=== PATIENT | female | born 1970 ===

== ENCOUNTER 2018-12-05 09:31 | Emergency (ER) | payer SELFPAY ==
[2018-12-05 09:57] VITALS: TEMP 98.6; O2SAT 98
--- NOTE | 2018-12-05 10:19 | ED PDOC ---
History of Present Illness History of Present Illness: 48 y/o f with PMH of brain tumor s/p resection comes to the ED c/o 2 days hx of cough, congestion, body aches, sore throat and subjective fever which started 2 days ago. + Sick contact at home with flu. patient reports she was coughing so hard this morning which made her vomit 3 times. reports poor appetite, denies any diarrhea, urinary symptoms, dizziness, blurred vision, chest pain or SOB. PMH: Brain tumore s/p resection 4 years ago PSH: Brain tumore s/p resection 4 years ago Meds: Denies Allg: Penicillin and Levoquine FH: Denies any significant FH SH: + Smoking, half pack per day, Denies alcohol,or drug use ROS: As per HPI <Trevon Madden - Last Filed: 12/05/18 12:13> HPI: Influenza <Yinka Monge III - Last Filed: 12/05/18 12:08> <Trevon Madden - Last Filed: 12/05/18 12:13> Time Seen by Provider: 12/05/18 09:57 Chief Complaint: Flu-like Symptoms Past Medical History Vital Signs: Last Vital Signs Temp 98.6 F 12/05/18 09:56 Pulse 84 12/05/18 09:56 Resp 16 12/05/18 09:56 BP 138/89 12/05/18 09:56 Pulse Ox 98 12/05/18 11:07 <Yinka Monge III - Last Filed: 12/05/18 12:08> Vital Signs: Last Vital Signs Temp 98.6 F 12/05/18 09:56 Pulse 84 12/05/18 09:56 Resp 16 12/05/18 09:56 BP 138/89 12/05/18 09:56 Pulse Ox 98 12/05/18 09:56 - Medical History PMH: No Chronic Diseases - Surgical History Other surgeries: Brain tumore resection - Family History Family History: States: No Known Family Hx - Social History Current smoker - smoking cessation education provided: Yes <Trevon Madden - Last Filed: 12/05/18 12:13> - Home Medications Home Medications: Ambulatory Orders Medication Instructions Recorded Ibuprofen [Motrin Tab] 600 mg PO Q6 PRN #15 tab 12/05/18 Oseltamivir Cap [Tamiflu] 75 mg PO BID #10 cap 12/05/18 guaiFENesin [guaifENESIN] 100 mg PO Q4 PRN #200 ml 12/05/18 - Allergies Allergies/Adverse Reactions: Allergies Allergy/AdvReac Type Severity Reaction Status Date / Time levofloxacin [From Levaquin] Allergy RASH Verified 12/05/18 09:53 Penicillins Allergy RASH Verified 12/05/18 09:53 Review of Systems Constitutional: Positive for: Fever, Chills. Negative for: Sweats Eyes: Negative for: Pain ENT: Positive for: Nose Discharge, Nose Congestion, Throat Pain. Negative for: Ear Pain Cardiovascular: Negative for: Chest Pain, Palpitations Respiratory: Positive for: Cough. Negative for: Shortness of Breath, Hemoptysis Gastrointestinal: Positive for: Vomiting. Negative for: Nausea, Abdominal Pain Genitourinary Female: Negative for: Dysuria Musculoskeletal: Negative for: Neck Pain Skin: Negative for: Rash Neurological: Negative for: Weakness Psych: Negative for: Anxiety <Trevon Madden - Last Filed: 12/05/18 12:13> Physical Exam - Physical Exam Appears: Positive for: Uncomfortable Head Exam: Positive for: NORMAL INSPECTION Skin: Positive for: Normal Color Eye Exam: Positive for: Normal appearance, EOMI, PERRL ENT: Positive for: Sinus Pain/Drainage, Nasal Congestion, Pharyngeal Erythema, Tonsillar Swelling. Negative for: Tonsillar Exudate Neck: Positive for: Normal, Painless ROM, Supple. Negative for: Pain On Movement Of Neck Cardiovascular/Chest: Positive for: Regular Rate, Rhythm. Negative for: Edema, JVD, Murmur Respiratory: Positive for: Normal Breath Sounds. Negative for: Decreased Breath Sounds, Accessory Muscle Use, Wheezing Gastrointestinal/Abdominal: Positive for: Normal Exam, Bowel Sounds, Soft. Negative for: Tenderness, Distended Back: Positive for: Normal Inspection. Negative for: L CVA Tenderness, R CVA Tenderness Extremity: Positive for: Normal ROM. Negative for: Tenderness Neurologic/Psych: Positive for: Alert, services account manager II-XII, Oriented <Trevon Madden - Last Filed: 12/05/18 12:13> Medical Decision Making Medical Decision Making: Flu like symptoms <Trevon Madden - Last Filed: 12/05/18 12:13> - ECG O2 Sat by Pulse Oximetry: 98 - Progress ED Course And Treament: A/P: 48 y/o F with flu like symptoms for 2 days - Toradol - CXR - Tamiflu - reexamination Case discussed with Dr. Monge CXR: negative for any acute changes Follow up with Dr. Madden on 12/14/18 at 11:20 Re-evaluation Time: 12:13 Condition: Improving,but remains with symptoms <Trevon Madden - Last Filed: 12/05/18 12:13> Disposition <Yinka Monge III - Last Filed: 12/05/18 12:08> - Disposition Disposition Time: 12:10 <Trevon Madden - Last Filed: 12/05/18 12:13> - Clinical Impression Clinical Impression: Influenza-like symptoms - Disposition Referrals: [facility] [Outside] Condition: STABLE Additional Instructions: Drink plenty of fluids, avoid close contact with others. Prescriptions: guaiFENesin [guaifENESIN] 100 mg PO Q4 PRN #200 ml PRN Reason: Cough Ibuprofen [Motrin Tab] 600 mg PO Q6 PRN #15 tab PRN Reason: Pain, Moderate (4-7) Oseltamivir Cap [Tamiflu] 75 mg PO BID #10 cap Instructions: Flu, Adult (DC) Forms: [employer] (Maldivian), [facility] ED School/Work Excuse Attending/Attestation - Attestation I have personally seen and examined this patient.: Yes I have fully participated in the care of the patient.: Yes I have reviewed all pertinent clinical information: Yes Notes (Text): 12/05/18 12:08 pt seen and examined w resident. CXR report reviewed. Vitals reviewed. No distress in ED. Given symptoms and history treat empiric for flu. Rx robitussin and motrin for symptoms. <Yinka Monge III - Last Filed: 12/05/18 12:08>
--- NOTE | 2018-12-05 11:52 | RAD ---
Date of service: 12/05/2018 HISTORY: cough COMPARISON: No prior. TECHNIQUE: Chest PA and lateral FINDINGS: LUNGS: No active pulmonary disease. PLEURA: No significant pleural effusion identified. No pneumothorax apparent. CARDIOVASCULAR: No aortic atherosclerotic calcification present. Normal cardiac size. No pulmonary vascular congestion. OSSEOUS STRUCTURES: No significant abnormalities. VISUALIZED UPPER ABDOMEN: Normal. OTHER FINDINGS: None. IMPRESSION: No active disease.
[2018-12-05 12:30] VITALS: BP 115/74; PULSE 70; RESP 18
== END 2018-12-05 12:30 | disposition home or self-care (01) ==
LOC: MERGE 09:31 → H.ER 09:31
DX: J11.1 Influenza due to unidentified influenza virus with other respiratory manifestations (principal); F17.210 Nicotine dependence, cigarettes, uncomplicated; Z98.890 Other specified postprocedural states; Z88.1 Allergy status to other antibiotic agents; Z88.0 Allergy status to penicillin
CPT/HCPCS: 71046; 81025; 96372; 99283; J1885

== ENCOUNTER 2019-03-04 14:03 | Emergency (ER) | payer SELFPAY ==
[2019-03-04 14:03] VITALS: BMI 31.8
[2019-03-04] MEDS ORDERED: Iohexol 240 (50 ml) PO ONE (14:52)
[2019-03-04 15:03] LABS: BASO % 0.7 % (0.0-2.0); EOS # 0.2 K/uL (0.0-0.7); EOS % 5.1 % (0.0-4.0); HEMOGLOBIN 13.9 g/dL (12.0-16.0); LYMPH # 1.5 K/uL (1.0-4.3); LYMPH % 37.1 % (20.0-40.0); MEAN CELL VOLUME 87.2 fl (81.0-99.0); MEAN CORPUSCULAR HEMOGLOBIN 29.4 pg (27.0-31.0); MEAN CORPUSCULAR HGB CONC 33.7 g/dL (33.0-37.0); MEAN PLATELET VOLUME 9.8 fl (7.2-11.7); MONO # 0.3 K/uL (0.0-0.8); MONO % 7.9 % (0.0-10.0); NEUT % 49.2 % (50.0-75.0); NRBC % 0.3 % (0.0-0.0); RBC 4.75 Mil/uL (3.80-5.20); RED CELL DISTRIBUTION WIDTH 14.2 % (11.5-14.5)
[2019-03-04 15:11] LABS: SQUAMOUS EPITHIAL 1 /hpf (0-5); URINE BACTERIA RARE (<OCC); URINE BILIRUBIN NEGATIVE (NEGATIVE); URINE BLOOD NEGATIVE (NEGATIVE); URINE GLUCOSE (UA) NEG (NEGATIVE); URINE LEUKOCYTE ESTERASE MOD Leu/uL (Negative); URINE PROTEIN NEGATIVE (NEGATIVE); URINE UROBILINOGEN 0.2-1.0 mg/dL (0.2-1.0)
[2019-03-04 15:18] LABS: ALB/GLOB RATIO 1.3 (1.0-2.1); ALBUMIN 4.6 g/dL (3.5-5.0); ALT/SGPT 58 U/L (9-52); AST/SGOT 41 U/L (14-36); BLOOD UREA NITROGEN 12 mg/dl (7-17); CALCIUM 9.9 mg/dL (8.4-10.2); GFR NON-AFRICAN AMERICAN > 60; LIPASE 140 U/L (23-300)
[2019-03-04 15:22] LABS: URINE CLARITY SLIGHT-CLOUDY (Clear)
[2019-03-04 15:24] LABS: URINE COLOR LIGHT YELLOW (YELLOW)
[2019-03-04] MEDS ORDERED: Iohexol 300 100 ML IJ ONE (16:51)
[2019-03-04] MEDS ORDERED: Sodium Chloride 0.9% 50 ML IV ONE (16:51)
--- NOTE | 2019-03-04 19:28 | ED PDOC ---
HPI: Abdomen Time Seen by Provider: 03/04/19 14:09 Chief Complaint (Nursing): Abdominal Pain Chief Complaint (Provider): Abdominal Pain History Per: Patient History/Exam Limitations: no limitations Onset/Duration Of Symptoms: Days Current Symptoms Are (Timing): Still Present Additional Complaint(s): 48 y/o female with a PMHx of a brain tumor resection presents to the ED complaining of abdominal pain and diarrhea, ongoing for the past 4-5 days. Of note, patient's boyfriend and another family member have had C-Diff in the last six months. Patient additionally has a history of diverticulitis that required hospitalization. Otherwise, patient denies fever, hematochezia, being on any blood thinners, alcohol use, drug use and vomiting. PMD: no provider Past Medical History Reviewed: Historical Data, Nursing Documentation, Vital Signs Vital Signs: Last Vital Signs Temp 98.8 F 03/04/19 14:05 Pulse 62 03/04/19 14:05 Resp 16 03/04/19 14:05 BP 152/92 H 03/04/19 14:05 Pulse Ox 99 03/04/19 14:05 - Medical History PMH: Diverticulitis, Gastritis Denies: HIV, Chronic Kidney Disease - Surgical History Other surgeries: brain tumor resection - Family History Family History: States: Hypertension - Social History Current smoker - smoking cessation education provided: Yes Alcohol: None Drugs: Denies - Home Medications Home Medications: Ambulatory Orders Medication Instructions Recorded Ibuprofen [Motrin Tab] 600 mg PO Q6 PRN #15 tab 12/05/18 Oseltamivir Cap [Tamiflu] 75 mg PO BID #10 cap 12/05/18 guaiFENesin [guaifENESIN] 100 mg PO Q4 PRN #200 ml 12/05/18 Atropine/Diphenoxylate [Lonox 1 tab PO QID PRN #30 tab 03/04/19 0.025 MG-2.5 MG] Saccharomyces Boulardi [Florastor] 500 mg PO BID #28 cap 03/04/19 Sulfamethoxazole/Trimethoprim 1 tab PO BID #20 tab 03/04/19 [Bactrim DS 800 mg-160 mg] metroNIDAZOLE [Flagyl] 500 mg PO TID #30 tab 03/04/19 - Allergies Allergies/Adverse Reactions: Allergies Allergy/AdvReac Type Severity Reaction Status Date / Time levofloxacin [From Levaquin] Allergy RASH Verified 12/07/18 08:33 Penicillins Allergy RASH Verified 12/07/18 08:33 Review of Systems ROS Statement: Except As Marked, All Systems Reviewed And Found Negative Constitutional: Positive for: Weakness. Negative for: Fever Gastrointestinal: Positive for: Abdominal Pain, Diarrhea. Negative for: Vomiting, Hematochezia, Hematemesis Physical Exam - Reviewed Nursing Documentation Reviewed: Yes Vital Signs Reviewed: Yes - Physical Exam Appears: Positive for: Uncomfortable Head Exam: Positive for: ATRAUMATIC, NORMOCEPHALIC Skin: Positive for: Normal Color, Warm, Dry Eye Exam: Positive for: Normal appearance, EOMI, PERRL Neck: Positive for: Normal, Painless ROM, Supple Cardiovascular/Chest: Positive for: Regular Rate, Rhythm. Negative for: Murmur Respiratory: Positive for: Normal Breath Sounds. Negative for: Respiratory Distress Gastrointestinal/Abdominal: Positive for: Tenderness (mild bilateral lower abdominal tenderness) Back: Positive for: Normal Inspection. Negative for: L CVA Tenderness, R CVA Tenderness Extremity: Positive for: Normal ROM. Negative for: Deformity Neurological/Psych: Positive for: Awake, Alert, Oriented (x3). Negative for: Motor/Sensory Deficits - Laboratory Results Result Diagrams: 03/04/19 14:45 03/04/19 14:45 Lab Results: Total Bilirubin 0.3 mg/dl (0.2-1.3) 03/04/19 14:45 AST 41 U/L (14-36) H D 03/04/19 14:45 ALT 58 U/L (9-52) H 03/04/19 14:45 Alkaline Phosphatase 94 U/L (38-126) 03/04/19 14:45 Total Protein 8.1 G/DL (6.3-8.2) 03/04/19 14:45 Albumin 4.6 g/dL (3.5-5.0) 03/04/19 14:45 Globulin 3.6 gm/dL (2.2-3.9) 03/04/19 14:45 Albumin/Globulin Ratio 1.3 (1.0-2.1) 03/04/19 14:45 Lipase 140 U/L (23-300) 03/04/19 14:45 Urine Color Light yellow (YELLOW) 03/04/19 14:46 Urine Clarity Slight-cloudy (Clear) 03/04/19 14:46 Urine pH 7.0 (5.0-8.0) 03/04/19 14:46 Ur Specific [place] 1.009 (1.003-1.030) 03/04/19 14:46 Urine Protein Negative mg/dL (NEGATIVE) 03/04/19 14:46 Urine Glucose (UA) Neg mg/dL (NEGATIVE) 03/04/19 14:46 Urine Ketones Negative mg/dL (NEGATIVE) 03/04/19 14:46 Urine Blood Negative (NEGATIVE) 03/04/19 14:46 Urine Nitrate Negative (NEGATIVE) 03/04/19 14:46 Urine Bilirubin Negative (NEGATIVE) 03/04/19 14:46 Urine Urobilinogen 0.2-1.0 mg/dL (0.2-1.0) 03/04/19 14:46 Ur Leukocyte Esterase Mod Elaina/uL (Negative) 03/04/19 14:46 Urine RBC (Auto) 1 /hpf (0-3) 03/04/19 14:46 Urine Microscopic WBC 16 /hpf (0-5) H 03/04/19 14:46 Ur Squamous Epith Cells 1 /hpf (0-5) 03/04/19 14:46 Urine Bacteria Rare (<OCC) 03/04/19 14:46 - ECG O2 Sat by Pulse Oximetry: 99 (RA) Pulse Ox Interpretation: Normal Medical Decision Making Medical Decision Making: Time:1453 A/P: -- Rule out diverticulitis vs. C-Diff colitis vs other -- Blood work, Stool sample and CT Abd/Pelvis ordered -- CT Abd/Pelvis PO & IV Contrast -- CMP -- Lipase -- Magnesium -- CBC with Differentials -- Morphine 2 mg IV -- Iohexol 50 ml PO -- Toradol 15 mg IVP -- OVA and Parasite -- Stool Culture -- C Diff Toxin A B -- Urinalysis Time: 1899 -- Patient endorsed to Dr. Whiteside, pending CT Abd/Pelvis. Scribe Attestation: Documented by Lynn Montoya, acting as a scribe Wes Monge III, DO. Provider Scribe Attestation: All medical record entries made by the Scribe were at my direction and personally dictated by me. I have reviewed the chart and agree that the record accurately reflects my personal performance of the history, physical exam, medi jackie decision making, and the department course for this patient. I have also personally directed, reviewed, and agree with the discharge instructions and disposition. Disposition - Clinical Impression Clinical Impression: Diverticulitis - Disposition Referrals: [facility] [place] [Outside] ([facility]) Disposition: Transfer of Care Disposition Time: 19:50 Condition: IMPROVED Prescriptions: Atropine/Diphenoxylate [Lonox 0.025 MG-2.5 MG] 1 tab PO QID PRN #30 tab PRN Reason: Diarrhea metroNIDAZOLE [Flagyl] 500 mg PO TID #30 tab Saccharomyces Boulardi [Florastor] 500 mg PO BID #28 cap Sulfamethoxazole/Trimethoprim [Bactrim DS 800 mg-160 mg] 1 tab PO BID #20 tab Instructions: Diverticulitis (DC) Forms: [facility] ED School/Work Excuse
--- NOTE | 2019-03-04 21:31 | ED PDOC ---
- Laboratory Results Result Diagrams: 03/04/19 14:45 03/04/19 14:45 Lab Results: Total Bilirubin 0.3 mg/dl (0.2-1.3) 03/04/19 14:45 AST 41 U/L (14-36) H D 03/04/19 14:45 ALT 58 U/L (9-52) H 03/04/19 14:45 Alkaline Phosphatase 94 U/L (38-126) 03/04/19 14:45 Total Protein 8.1 G/DL (6.3-8.2) 03/04/19 14:45 Albumin 4.6 g/dL (3.5-5.0) 03/04/19 14:45 Globulin 3.6 gm/dL (2.2-3.9) 03/04/19 14:45 Albumin/Globulin Ratio 1.3 (1.0-2.1) 03/04/19 14:45 Lipase 140 U/L (23-300) 03/04/19 14:45 Urine Color Light yellow (YELLOW) 03/04/19 14:46 Urine Clarity Slight-cloudy (Clear) 03/04/19 14:46 Urine pH 7.0 (5.0-8.0) 03/04/19 14:46 Ur Specific [place] 1.009 (1.003-1.030) 03/04/19 14:46 Urine Protein Negative mg/dL (NEGATIVE) 03/04/19 14:46 Urine Glucose (UA) Neg mg/dL (NEGATIVE) 03/04/19 14:46 Urine Ketones Negative mg/dL (NEGATIVE) 03/04/19 14:46 Urine Blood Negative (NEGATIVE) 03/04/19 14:46 Urine Nitrate Negative (NEGATIVE) 03/04/19 14:46 Urine Bilirubin Negative (NEGATIVE) 03/04/19 14:46 Urine Urobilinogen 0.2-1.0 mg/dL (0.2-1.0) 03/04/19 14:46 Ur Leukocyte Esterase Mod Elaina/uL (Negative) 03/04/19 14:46 Urine RBC (Auto) 1 /hpf (0-3) 03/04/19 14:46 Urine Microscopic WBC 16 /hpf (0-5) H 03/04/19 14:46 Ur Squamous Epith Cells 1 /hpf (0-5) 03/04/19 14:46 Urine Bacteria Rare (<OCC) 03/04/19 14:46 - ECG O2 Sat by Pulse Oximetry: 99 (RA) Pulse Ox Interpretation: Normal Medical Decision Making Medical Decision Making: Time: 1999 -- Patient endorsed to me by Dr. Monge, pending CT Abd/Pelvis EXAM: CT Abdomen and Pelvis with IV contrast CLINICAL HISTORY: Lower abdominal pain history of diverticulittis TECHNIQUE: Axial computed tomography images of the abdomen and pelvis with intravenous contrast. 785.90 mGy-cm CONTRAST: With; [id number] 95ML COMPARISON: 09/16/2016 FINDINGS: LUNG BASES: The lung bases appear clear. No pleural effusions are seen. LIVER: Fatty infiltration of the liver. GALLBLADDER AND BILE DUCTS: The gallbladder appears within normal limits. No radioopaque gallstones are seen. No biliary ductal dilatation is evident. PANCREAS: Unremarkable. SPLEEN: Unremarkable. ADRENAL GLANDS: Unremarkable. KIDNEYS, URETERS, AND BLADDER: The kidneys appear within normal limits. There is no hydronephrosis or hydroureter. No urinary calculi are seen. STOMACH AND BOWEL: Unremarkable appearance of the stomach and bowel. No evidence of bowel obstruction. No evidence suggesting enteritis or colitis. Diverticular changes present with wall thickening at the descending and sigmoid colon. There is no pericolonic mass or free fluid identified. APPENDIX: No evidence of acute appendicitis on CT examination. PERITONEUM: No free fluid. No free air. LYMPH NODES: No lymphadenopathy is evident. REPRODUCTIVE: There is an enlarged fibroid uterus with an approximate 9.1 x 6.7 cm pedun culated fibroid arising from the left side of the uterus. VASCULATURE: No evidence of abdominal aortic aneurysm. BONES: Advanced hypertrophic and degenerative changes lumbar spine. IMPRESSION: Fatty infiltration of the liver. Enlarged fibroid uterus with large pedunculated fibroid arising from the left side of the uterus. Thickening of the wall of the sigmoid and descending colon with diverticular changes. No diverticular abscess or mass. Similar appearance as compared to the old study. Electronically signed on Mar 04, 2019 7:18:51 PM EDT by: Francis Babin M.D., Certified by [facility], Diagnostic Radiology Time: 2132 -- On re-evaluation, patient reports an improvement of symptoms. Discussed with patient findings and plan of care. Patient in agreement. Patient to be discharged home with a diagnosis of diverticulitis and instructions to follow up with PMD and take antibiotic medications as prescribed. Scribe Attestation: Documented by Lynn Montoya, acting as a scribe for Noemi Whiteside MD. Provider Scribe Attestation: All medical record entries made by the Scribe were at my direction and personally dictated by me. I have reviewed the chart and agree that the record accurately reflects my personal performance of the history, physical exam, medical decision making, and the department course for this patient. I have also personally directed, reviewed, and agree with the discharge instructions and disposition. Disposition Counseled Patient/Family Regarding: Studies Performed, Diagnosis, Need For Followup, Rx Given - Clinical Impression Clinical Impression: Diverticulitis - POA Present On Arrival: None - Disposition Referrals: [facility] [place] [Outside] ([facility]) Disposition: Routine/Home Disposition Time: 21:33 Condition: STABLE Prescriptions: Atropine/Diphenoxylate [Lonox 0.025 MG-2.5 MG] 1 tab PO QID PRN #30 tab PRN Reason: Diarrhea metroNIDAZOLE [Flagyl] 500 mg PO TID #30 tab Saccharomyces Boulardi [Florastor] 500 mg PO BID #28 cap Sulfamethoxazole/Trimethoprim [Bactrim DS 800 mg-160 mg] 1 tab PO BID #20 tab Instructions: Diverticulitis (DC) Forms: [facility] ED School/Work Excuse
[2019-03-04 21:58] VITALS: BP 135/85; PULSE 74; RESP 16; TEMP 98.6
--- NOTE | 2019-03-05 08:55 | CT ---
Date of service: 03/04/2019 PROCEDURE: CT Abdomen and Pelvis with contrast HISTORY: lower abd pain hx diverticulitis COMPARISON: 02/05/2018 TECHNIQUE: Contrast dose: 95 mL Omnipaque 300 Radiation dose: Total exam DLP = 785.9 mGy-cm. This CT exam was performed using one or more of the following dose reduction techniques: Automated exposure control, adjustment of the mA and/or kV according to patient size, and/or use of iterative reconstruction technique. FINDINGS: LOWER THORAX: Unremarkable. LIVER: Mild hepatomegaly. Diffusely diminished attenuation of the liver consistent with fatty infiltration. There is a roughly 1.0 x 2.9 cm area of relatively increased attenuation in the medial segment of the left hepatic lobe, adjacent to the gallbladder fossa, consistent with focal fatty sparing. There is a 2nd small area seen along the anterior inferior right hepatic lobe medial to the gallbladder fossa, again consistent with focal fatty sparing. Again, this is unchanged. No mass. No biliary dilatation. GALLBLADDER AND BILE DUCTS: Unremarkable. PANCREAS: Unremarkable. No gross lesion or ductal dilatation. SPLEEN: Unremarkable. ADRENALS: Unremarkable. No mass. KIDNEYS AND URETERS: Cortical cyst, 1.8 cm, mid right kidney, unchanged. No calculus or hydronephrosis. VASCULATURE: Unremarkable. No aortic aneurysm. No aortic atherosclerotic calcification or mural plaque present. BOWEL: Sigmoid diverticulosis. No evidence of diverticulitis. Mild mural thickening of the sigmoid colon most likely secondary to chronic muscularis hypertrophy. This process also involves the distal aspect of the descending colon. No bowel obstruction. No other abnormal bowel loops are identified. APPENDIX: Not identified. No secondary findings to suggest acute appendicitis. PERITONEUM: Unremarkable. No free fluid. No free air. LYMPH NODES: Unremarkable. No enlarged lymph nodes. BLADDER: Unremarkable. REPRODUCTIVE: Enlarged globular multi fibroid uterus unchanged compared to prior examination. BONES: No acute fracture. OTHER FINDINGS: None. IMPRESSION: No acute abnormality. No evidence of acute diverticulitis. Fatty liver with several areas of focal fatty sparing adjacent to the gallbladder fossa. Sigmoid diverticulosis with probable chronic muscularis hypertrophy. Enlarged, globular multi fibroid uterus. The preliminary findings for this examination were reported by [facility] at 7:18 p.m. on 03/04/2019. There is concurrence of this report with the preliminary findings.
[2019-03-06 10:39] VITALS: O2SAT 99
== END 2019-03-04 21:58 | disposition home or self-care (01) ==
LOC: H.ER 14:03
DX: K57.32 Diverticulitis of large intestine without perforation or abscess without bleeding (principal); D25.9 Leiomyoma of uterus, unspecified; Z88.0 Allergy status to penicillin; Z88.1 Allergy status to other antibiotic agents
CPT/HCPCS: 74177; 80053; 81003; 81025; 83690; 83735; 85025; 87045; 87086; 87177; 87209; 87230; 96374; 99284; J1885; J2270; Q9966; Q9967